=== PATIENT | female | born 1975 | race Caucasian/White ===

== ENCOUNTER 2024-06-07 12:48 | Outpatient (AMB) | payer MEDICAID, SELFPAY ==
--- NOTE | 2024-06-07 12:55 | MHC.OFFVIS ---
Vital Signs 06/07/24 13:00 Height 5 ft 1 in Weight 178 lb BMI 33.6 BP 198/79 H Blood Pressure Location Lt brachial Position Sitting Pulse 70 Pulse Source Pulse Oximeter Pulse Oximetry (%) 97 Oxygen Delivery Method Room Air Intake Visit Reasons: Chronic Midline Low Back Pain Intake Note: Pain today 8/10 Service [employer] Super[employer] Required: No Accompanied by: Self / Same As Patient Allergies No Known Allergies Allergy (Verified 06/07/24 12:59) HPI HPI Chronic Midline Low Back Pain: Details: Patient is a pleasant 49 years old female with prior history of chronic midline low back pain without sciatica, history of recent partial hysterectomy, non morbid obesity, presents today for initial evaluation of low back pain. Denies any recent or past trauma, injury, or falls. 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 She also has history of weight lifting but recently stopped gym sessions due to significant low back pain. Patient lives on the 4th floor in the apartment complex without elevator. Back pain is axial and also radiates into the left buttock and lateral hip area but no radiation of pain below knee level. She recently completed lumbar spine MRI on 05/27/24 at [facility] and shares report via her iPhone, consistent with L5-S1 arthritis and T12-L1 small central disc herniation. Denies previous spine surgery or injections. Pain affects her daily activities, functioning, walking, work, sleep and social interactions. Pain is constant and worse in the mornings and evenings. Pain is rated at 8/10. Denies any fever or chills, abdominal or groin pain, footdrop, weakness, bladder or bowel dysfunction or saddle anesthesia. Oswestry low back disability score=24 (moderate disability) Location: Lower back pain, radiates to left sacral area Duration: Chronic pain >5 years Characteristics of symptom or complaint: Aching, sharp, tingling, stabbing, burning, shooting, throbbing, tiring Aggravating or associated factors: Laying, movements, bending, changing positions, climbing stairs, ADLs, gym Relieving factors: Cyclobenzaprine, meloxicam, heat therapy, ketorolac injection Treatment: Home exercise program, TENS unit, weight loss (100 lbs over 3 years) [facility] Medical History Abnormal urine Abdominal pannus Lumbosacral spondylosis Surgical History History of partial hysterectomy Social History Alcohol intake: current Alcohol intake frequency: holidays/special occasions only Substance Use Type: Marijuana Substance Use Frequency: Daily Review of Systems Const All systems reviewed & are unremarkable except as noted in HPI and below Physical Exam Vital Signs: Last Vital Signs Pulse 70 06/07/24 13:00 BP 198/79 H 06/07/24 13:00 Pulse Ox 97 06/07/24 13:00 Oxygen Delivery Method Room Air 06/07/24 13:00 BMI result Body Mass Index 33.6 General: Appears afebrile. Alert and oriented. Mood and affect appropriate. Follows and participates in conversation appropriately. Respiratory effort is unlabored. No cough. Able to transition from sit to stand unassisted. Ambulates with bilaterally normal heel strike and toe off. General: Yes no CVA tenderness Back/Spine/Pelvis Other: Patient is able to walk and stand on heels and tip toes with no difficulties demonstrating good motor tone. Normal gait, no limping. Can flex forward to 70-75 degrees and extend to 5-10 degrees before experiencing lumbar pain, worse pain with lumbar extension and axial rotations. Demonstrates 5/5 strength of quadriceps bilaterally as well as flexion/dorsiflexion of bilateral feet against resistance. 2+ pedal pulses bilaterally. Straight leg rise with dorsiflexion negative bilaterally. +2 patellar and achilles reflexes bilaterally. Facet loading test positive bilaterally. Michaela sign, Sage?s, Pelvic compression and Stinchfield tests are positive on the left. No groin pain with I/E hip rotations. Valsalva maneuver negative. Back: no CVA tenderness Cervical Spine: cervical ROM normal, cervical muscular tenderness and No Cervical spine tenderness Thoracic/Lumbar Spine: thoracic and lumbar spine normal to inspection, No Thoracic/lumbar spine scar(s), Lasegue's sign negative, straight leg raise negative bilaterally, pain with thoraco-lumbar ROM, paraspinal muscle tenderness, thoraco-lumbar ROM limited, thoracic spinal tenderness at T12 and lumbar spinal tenderness (L4-S1) Pelvis: buttock tenderness (left>right) bilaterally Sacroiliac joints: on the right nontender and on the left tender to palpation Extrem General: Yes capillary refill normal, Yes no clubbing, cyanosis or edema and Yes no calf tenderness Results Reviewed Results Reviewed: Pending lumbar spine MRI report from [facility] completed on 05/27/24 Assessment & Plan Assessment & Plan (1) Lumbosacral spondylosis: Code(s): M47.817 - Spondylosis without myelopathy or radiculopathy, lumbosacral region Category: Medical (2) Chronic low back pain: Code(s): M54.50 - Low back pain, unspecified; G89.29 - Other chronic pain Category: Medical (3) Lumbar degenerative disc disease: Code(s): M51.36 - Other intervertebral disc degeneration, lumbar region Category: Medical (4) Lumbosacral spondylosis: Code(s): M47.817 - Spondylosis without myelopathy or radiculopathy, lumbosacral region Category: Medical (5) Chronic low back pain: Code(s): M54.50 - Low back pain, unspecified; G89.29 - Other chronic pain Category: Medical (6) Muscle spasm of back: Code(s): M62.830 - Muscle spasm of back Category: Medical (7) Lumbar degenerative disc disease: Code(s): M51.36 - Other intervertebral disc degeneration, lumbar region Category: Medical (8) Lumbosacral spondylosis: Code(s): M47.817 - Spondylosis without myelopathy or radiculopathy, lumbosacral region Category: Medical (9) Chronic low back pain: Code(s): M54.50 - Low back pain, unspecified; G89.29 - Other chronic pain Category: Medical Plan Recommend formal physical therapy to reduce pain and optimize mobility, improve strength, and neuromuscular coordination. Script provided. If no pain relief with PT, we will consider diagnostic lumbar medial branch blocks for potential Sprint PNS trial, therapeutic injections or RFA procedure. Medical release request sent to [facility] for lumbar spine MRI report completed on 05/27/2024. Script provided for lidocaine patch. We also discussed adding gabapentin, patient declined due to potential side effects, including weight gain. All questions and concerns have been answered and patient agreed with the treatment plan. Follow-up after PT and sooner as needed Orders: Orders PT Evaluation and Treatment 06/07/24 G89.29 - Other chronic pain, M47.817 - Spondylosis without myelopathy or radiculopathy, lumbosacral region, M51.36 - Other intervertebral disc degeneration, lumbar region, M54.50 - Low back pain, unspecified, M62.830 - Muscle spasm of back Medications: New lidocaine 5% 1 patch topical DAILY 30 days 30 ea 1RF pain G89.29 - Other chronic pain, M47.817 - Spondylosis without myelopathy or radiculopathy, lumbosacral region, M51.36 - Other intervertebral disc degeneration, lumbar region, M54.50 - Low back pain, unspecified Coding Level of Care Code New Pt Level 4 (29911) Complex EM visit Add On G2211 Diagnoses Lumbosacral spondylosis M47.817 Chronic low back pain M54.50; G89.29 Lumbar degenerative disc disease M51.36 Muscle spasm of back M62.830
[2024-06-07 13:00] VITALS: BP 198/79; PULSE 70; O2SAT 97; BMI 33.6
== END 2024-06-07 13:31 | disposition home or self-care (01) ==
PROVIDERS: PCP Physician Assistant; Referring Provider Physician Assistant; Visit Provider Nurse Practitioner Family
DX: M47.817 Spondylosis without myelopathy or radiculopathy, lumbosacral region (principal); M54.50 Low back pain, unspecified; G89.29 Other chronic pain; M51.36 Other intervertebral disc degeneration, lumbar region; M62.830 Muscle spasm of back
CPT/HCPCS: 99204

== ENCOUNTER → 2024-06-07 12:48 | Outpatient (BNVA) | payer MEDICAID, SELFPAY | PROVIDERS: PCP Physician Assistant; Referring Provider Physician Assistant; Visit Provider Nurse Practitioner Family | DX: M47.817 Spondylosis without myelopathy or radiculopathy, lumbosacral region (principal); M54.50 Low back pain, unspecified; M51.36 Other intervertebral disc degeneration, lumbar region; M62.830 Muscle spasm of back; G89.29 Other chronic pain | CPT/HCPCS: 99212 ==